=== PATIENT | male | born 1990 | race African-American/Black ===

== ENCOUNTER 2021-08-27 14:32 | Emergency (ER) | payer MEDICAID ==
[~2021-08-27] VITALS: Ht 175.3 cm; Wt 796.1 kg
[2021-08-27] MEDS ORDERED: IBUP-1955 PO (15:17)
[2021-08-27] MEDS ORDERED: ACET-2154 PO (15:17)
--- NOTE | 2021-08-27 15:26 | NUR ---
PT SEEN BY DR VERDUGO.
[2021-08-27 15:27] VITALS: BP 146/77
--- NOTE | 2021-08-27 15:27 | NUR ---
DISCHARGE INSTRUCTIONS RENDERED PER MD ORDERS.
== END 2021-08-27 15:28 | disposition home or self-care (01) ==
LOC: ER 14:32
DX: U07.1 COVID-19 (principal); M79.10 Myalgia, unspecified site
CPT/HCPCS: A4663